=== PATIENT | female | born 1975 | race Caucasian/White ===

== ENCOUNTER → 2020-10-08 | Outpatient (CLI) | payer OTHER ==
[~2020-10-08] MED LIST: Abilify2 MG PO; CEPH500 PO; Desyrel150 MG PO; GABA100 PO; HYDACE5 PO; HYDCHL12.5 PO; LISI5 PO; O; SULTRIDS PO
[2020-10-12 15:08] LABS: HPV 16 Negative (Negative); HPV 18 Negative (Negative); HPV OTHER HR TYPES Negative (Negative)
== END ==
LOC: LAB 15:30 → LAB SHORT 15:30
PROVIDERS: Registered Nurse Community Health
DX: Z12.4 Encounter for screening for malignant neoplasm of cervix (principal)
CPT/HCPCS: 87624; G0123